=== PATIENT | male | born 1935 | race Two or more races ===

== ENCOUNTER → 2018-02-16 | Emergency (ER) | payer OTHER ==
[~2018-02-16] VITALS: Ht 165.1 cm; Wt 59.0 kg
[~2018-02-16] MED LIST: BACTRIM DS TAB1 EACH PO; MEDROLPACK PO; MUPIROCIN15 GM TOP; TRIAMCINOLONE A15 G1 TOP
== END | disposition home or self-care (01) ==
LOC: ER 08:09
DX: L20.89 Other atopic dermatitis (principal); L03.211 Cellulitis of face

== ENCOUNTER 2020-07-29 20:14 | Emergency (ER) | payer OTHER ==
[~2020-07-29] VITALS: Ht 165.1 cm; Wt 63.5 kg
[2020-07-29] MEDS ORDERED: RAYOS1 MG (20:23)
[2020-07-29] MEDS ORDERED: COZAAR25 MG (20:23)
[2020-07-29] MEDS ORDERED: ULTRAM50 MG (20:23)
[2020-07-29] MEDS ORDERED: RESTORIL7.5 MG (20:24)
== END 2020-07-29 22:49 | disposition home or self-care (01) ==
LOC: ER 20:14
DX: S00.81XA Abrasion of other part of head, initial encounter (principal); S60.511A Abrasion of right hand, initial encounter; S80.01XA Contusion of right knee, initial encounter; M54.2 Cervicalgia; W18.09XA Striking against other object with subsequent fall, initial encounter; Y93.01 Activity, walking, marching and hiking; Y92.488 Other paved roadways as the place of occurrence of the external cause; Y99.8 Other external cause status